=== PATIENT | female | born 1995 | race Two or more races ===

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

== ENCOUNTER 2017-01-07 10:40 | Outpatient (CLI) | payer OTHER, MEDICAID ==
--- NOTE | 2017-01-07 10:49 | Non Stress Test Report ---
Non Stress Test Datetime Report Generated by CPN: 01/07/2017 10:48 DEMOGRAPHIC Test Number: 2 EGA NST: 37.2 INDICATION Indication for Study (NST) Other: LC MONITORING Monitor Explained: Monitor Explained; Test Explained; Patient Verbalized Understanding Time on Monitor: 12/27/2016 16:52 Time off Monitor: 12/27/2016 17:26 NST Duration: 34 NST INTERVENTIONS NST Interventions: None Physician Notified NST: Dr Prakash BABY A: [id number] BABY A Movement : Present Contraction Frequency : Irreg FHR Baseline : 140 Accelerations : 15X15 Decelerations : None Variability : Moderate 6-25bpm NST Review: Meets Criteria for Reactive NST NST Review and Verified By : Bernard Randall RN NSSrinivas Results: Reactive NST REPORT Report Trigger: Send Report
--- NOTE | 2017-01-07 12:05 | Non Stress Test Report ---
Non Stress Test Datetime Report Generated by CPN: 01/07/2017 12:04 DEMOGRAPHIC EGA NST: 38.6 INDICATION Indication for Study: Ordered by Provider Indication for Study (NST) Other: GDM MONITORING Monitor Explained: Monitor Explained; Test Explained; Patient Verbalized Understanding Time on Monitor: 01/07/2017 10:53 Time off Monitor: 01/07/2017 11:59 NST Duration: 66 NST INTERVENTIONS NST Interventions: PO Hydration; Reposition Patient Physician Notified NST: H Primo CNM BABY A Movement : Present Contraction Frequency : irr FHR Baseline : 150 Accelerations : 15X15 Decelerations : None Variability : Moderate 6-25bpm NST Review: Meets Criteria for Reactive NST NST Review and Verified By : Sebastien Harris RNC NST Results: Reactive NST REPORT Report Trigger: Send Report
== END 2017-01-07 12:03 | disposition home or self-care (01) ==
LOC: LC 10:40
PROVIDERS: ATTEND Specialist
PROC: 4A1HXCZ Monitoring of Products of Conception, Cardiac Rate, External Approach (ICD-10-PCS; principal; 2017-01-07)
DX: O24.419 Gestational diabetes mellitus in pregnancy, unspecified control (principal); Z3A.38 38 weeks gestation of pregnancy
CPT/HCPCS: 59025; 82962